=== PATIENT | female | born 1975 | race Caucasian/White ===

== ENCOUNTER 2020-06-04 08:40 | Day surgery (SDC) | payer OTHER ==
[~2020-06-04 08:40] MED LIST: Lactated Ringers 1,000 ML IV SCH; Lidocaine 1%/Sod Bicarbonate in NS 8.4% 1 ML Syringe IDERM PRN; Sodium Chloride 0.9% 10 ML Syringe FLUSH PRN
--- NOTE | 2020-06-04 08:53 | PCM.PREANE ---
Preanesthetic Assessment - Anesthesia/Transfusion/Family Hx Anesthesia History: Prior Anesthesia Reaction Type of Anesthesia Reaction: Excessive Nausea/Vomiting Family History of Anesthesia Reaction: No Transfusion History: No Prior Transfusion(s) - Review of Systems General: No Symptoms Pulmonary: No Symptoms Cardiovascular: No Symptoms Gastrointestinal: No Symptoms Neurological: No Symptoms Other: Reports: None - Physical Assessment ASA Class: 2 Mental Status: Alert & Oriented x3 Airway Class: Mallampati = 1 Dentition: Reports: Normal Dentition Thyro-Mental Finger Breadths: 3 Mouth Opening Finger Breadths: 3 ROM/Head Extension: Full Lungs: Clear to Auscultation, Normal Respiratory Effort Cardiovascular: Regular Rate, Regular Rhythm - Allergies Allergies/Adverse Reactions: Allergies Allergy/AdvReac Type Severity Reaction Status Date / Time Penicillins Allergy Hives Verified 06/03/20 13:33 - Acknowledgements Anesthesia Type Planned: MAC Pt an Appropriate Candidate for the Planned Anesthesia: Yes Alternatives and Risks of Anesthesia Discussed w Pt/Guardian: Yes Pt/Guardian Understands and Agrees with Anesthesia Plan: Yes PreAnesthesia Questionnaire HEENT History: Reports: Allergic Rhinitis Cardiovascular History: Reports: None Respiratory History: Reports: None Gastrointestinal History: Reports: Irritable Bowel Syndrome 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 Genitourinary History: Reports: Other (See Below) Other Genitourinary History: elevated creatinine 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 Musculoskeletal History: Reports: None Neurological History: Reports: None Psychiatric History: Reports: None Endocrine/Metabolic History: Reports: None Hematologic History: Reports: None Immunologic History: Reports: None Oncologic (Cancer) History: Reports: None Dermatologic History: Reports: None - Infectious Disease History Infectious Disease History: Reports: None - Past Surgical History Head Surgeries/Procedures: Reports: None HEENT Surgical History: Reports: Adenoidectomy, Eye Surgery, LASIK Cardiovascular Surgical History: Reports: None Respiratory Surgical History: Reports: None GI Surgical History: Reports: Colonoscopy Female Surgical History: Reports: Breast Reduction Endocrine Surgical History: Reports: None Neurological Surgical History: Reports: None Musculoskeletal Surgical History: Reports: None Oncologic Surgical History: Reports: None Dermatological Surgical History: Reports: None - SUBSTANCE USE Tobacco Use Status *Q: Former Tobacco User Recreational Drug Use History: No - HOME MEDS Home Medications: Home Meds Albuterol Sulfate [Proair Hfa] 1 - 2 puff INH Q4H PRN 06/03/20 [History] Loratadine [Claritin] 10 mg PO DAILY 06/03/20 [History] - CURRENT (IN HOUSE) MEDS Current Meds: Current Medications Lactated Ringer's (Ringers, Lactated) 1,000 mls @ 125 mls/hr IV ASDIRECTED MERVAT Stop: 06/04/20 23:00 Lidocaine/Sodium Bicarbonate (Buffered Lidocaine 1% In Ns 8.4%) 0.25 ml IDERM O NETIME PRN PRN Reason: Prior to IV Start Stop: 06/04/20 18:00 Sodium Chloride (Saline Flush) 10 ml FLUSH ASDIRECTED PRN PRN Reason: Keep Vein Open Stop: 06/04/20 18:00
[2020-06-04] MEDS ORDERED: Propofol 200 MG/20 ML SDV ONE ×4 (09:03→10:18)
[2020-06-04] MEDS ORDERED: fentaNYL 100 MCG/2 ML SDV ONE (09:03)
[2020-06-04] MEDS ORDERED: Lidocaine 1% 4 ML ONE (09:04)
--- NOTE | 2020-06-04 10:34 | PCM.PRNOTE ---
- Free Text/Narrative Note: Date: 06/04/2020 Procedure: screening upper and lower endoscopy History: Russell syndrome, + PMS-2 mutation Endoscopist: Garland Baca MD Findings: a few small gastric polyps, with small hiatal hernia. Colon prep was fair, with no polyps identified. A few scattered diverticula noted. Detailed Report: The patient was taken to the endoscopy suite and placed in left lateral decubitus position. Timeout was performed, and monitored anesthesia care was initiated. A bite-block was placed. The endoscope was inserted into the mouth and advanced to the second portion of the duodenum. Duodenal mucosa appeared normal, there were no lesions appreciated in the duodenum. The scope was then withdrawn into the distal portion of the stomach. The pylorus and gastric antrum appeared normal. At the mid body of the stomach and near the gastroesophageal junction, a few scattered small benign-appearing polyps were identified. A few of these were biopsied with cold forceps. 1 was removed with a cold snare. There was a small hiatal hernia appreciated without any evidence of active inflammation. The scope was withdrawn into the distal esophagus. The Z-line appeared normal. No lesions were appreciated in the esophagus otherwise. Air was suctioned from the stomach prior to withdrawal of the scope. Next attention was turned to colonoscopy. The anus appeared normal. Rectal exam was unremarkable. The colonoscope was inserted and advanced all the way to the cecum. The appendiceal orifice and ileocecal valve were visualized. Prep was fair to good. The scope was slowly withdrawn and mucosal surfaces were carefully inspected. No polyps were identified. There were a few small scattered diverticula along the length of the colon. No pathology noted on retroflexion of the scope within the rectum. Air was suctioned from the rectum prior to withdrawal of the scope. The patient tolerated the procedure well.
--- NOTE | 2020-06-04 10:40 | PCM48HPAN ---
Post Anesthesia Note - EVALUATION WITHIN 48HRS OF ANESTHETIC Vital Signs in Normal Range: Yes Patient Participated in Evaluation: Yes Respiratory Function Stable: Yes Airway Patent: Yes Cardiovascular Function Stable: Yes Hydration Status Stable: Yes Pain Control Satisfactory: Yes Nausea and Vomiting Control Satisfactory: Yes Mental Status Recovered: Yes Vital Signs: Last Vital Signs Temp 37.2 C 06/04/20 08:35 Pulse 107 H 06/04/20 08:35 Resp 16 06/04/20 08:35 BP 139/98 H 06/04/20 08:35 Pulse Ox 97 06/04/20 08:35
== END 2020-06-04 11:20 | disposition home or self-care (01) ==
LOC: JD.SDS 08:40
PROVIDERS: ATTEND Surgery
DX: Z12.11 Encounter for screening for malignant neoplasm of colon (principal); Z15.09 Genetic susceptibility to other malignant neoplasm; K57.30 Diverticulosis of large intestine without perforation or abscess without bleeding; K44.9 Diaphragmatic hernia without obstruction or gangrene; K31.7 Polyp of stomach and duodenum; Z88.0 Allergy status to penicillin; Z79.899 Other long term (current) drug therapy; Z98.890 Other specified postprocedural states; Z87.891 Personal history of nicotine dependence
CPT/HCPCS: 00813; J2001; J2704; J3010; J7120

== ENCOUNTER 2020-07-09 08:02 | Day surgery (SDC) | payer OTHER ==
[2020-07-09] MEDS ORDERED: Sodium Chloride 0.9% 50 ML SDV ONE (08:13)
[2020-07-09] MEDS ORDERED: Lidocaine 1% with EPINEPHrine 1:100,000 10 ML MDV ONE (08:13)
[2020-07-09] MEDS ORDERED: Bupivacaine 0.5% 30 ML SDV ONE ×2 (08:13→09:42)
[2020-07-09] MEDS ORDERED: Scopolamine 1.5 MG Transdermal Patch TRDERM PRN (08:34)
--- NOTE | 2020-07-09 08:54 | PCM.PREANE ---
Preanesthetic Assessment - Procedure Proposed Procedure: laparoscopic assisted vaginal hysterectomy with BSO - Anesthesia/Transfusion/Family Hx Anesthesia History: Prior Anesthesia Reaction (nausea) Family History of Anesthesia Reaction: No Transfusion History: No Prior Transfusion(s) - Review of Systems General: No Symptoms Pulmonary: No Symptoms Cardiovascular: No Symptoms Gastrointestinal: No Symptoms Neurological: No Symptoms Other: Reports: None - Physical Assessment NPO Status Date: 07/08/20 NPO Status Time: 00:00 Vital Signs: Last Vital Signs Temp 36.9 C 07/09/20 08:10 Pulse 81 07/09/20 08:10 Resp 16 07/09/20 08:10 BP 133/96 H 07/09/20 08:10 Pulse Ox 97 07/09/20 08:10 Height: 1.65 m Weight: 94.347 kg ASA Class: 2 Mental Status: Alert & Oriented x3 Airway Class: Mallampati = 1 Dentition: Reports: Normal Dentition Thyro-Mental Finger Breadths: 3 Mouth Opening Finger Breadths: 2 ROM/Head Extension: Full Lungs: Clear to Auscultation, Normal Respiratory Effort Cardiovascular: Regular Rate, Regular Rhythm - Lab Values: Laboratory Last Values Urine HCG, Qual Negative (NEGATIVE) 07/09/20 08:02 - Allergies Allergies/Adverse Reactions: Allergies Allergy/AdvReac Type Severity Reaction Status Date / Time Penicillins Allergy Hives Verified 07/09/20 08:44 - Anesthesia Plan Pre-Op Medication Ordered: None - Acknowledgements Anesthesia Type Planned: General Anesthesia Pt an Appropriate Candidate for the Planned Anesthesia: Yes Alternatives and Risks of Anesthesia Discussed w Pt/Guardian: Yes Pt/Guardian Understands and Agrees with Anesthesia Plan: Yes PreAnesthesia Questionnaire HEENT History: Reports: Allergic Rhinitis Cardiovascular History: Reports: None Respiratory History: Reports: None Gastrointestinal History: Reports: Irritable Bowel Syndrome 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 Genitourinary History: Reports: Other (See Below) Other Genitourinary History: elevated creatinine, hematuria 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 , Other (See Below) Other OB/BYN History: hot flashes, irregular menses, menorrhagia, elective Musculoskeletal History: Reports: None Neurological History: Reports: None Psychiatric History: Reports: None Endocrine/Metabolic History: Reports: None Hematologic History: Reports: None Immunologic History: Reports: None Oncologic (Cancer) History: Reports: None Dermatologic History: Reports: None - Infectious Disease History Infectious Disease History: Reports: None - Past Surgical History Head Surgeries/Procedures: Reports: None HEENT Surgical History: Reports: Adenoidectomy, Eye Surgery, LASIK Cardiovascular Surgical History: Reports: None Respiratory Surgical History: Reports: None GI Surgical History: Reports: Colonoscopy Female Surgical History: Reports: Breast Reduction Endocrine Surgical History: Reports: None Neurological Surgical History: Reports: None Musculoskeletal Surgical History: Reports: None Oncologic Surgical History: Reports: None Dermatological Surgical History: Reports: None - SUBSTANCE USE Tobacco Use Status *Q: Former Tobacco User Tobacco Use Within Last Twelve Months: No Second Hand Smoke Exposure: No Days Per Week of Alcohol Use: 1 Number of Drinks Per Day: 0 Total Drinks Per Week: 0 Recreational Drug Use History: No - HOME MEDS Home Medications: Home Meds Albuterol Sulfate [Proair Hfa] 1 - 2 puff INH Q4H PRN 06/03/20 [History] Loratadine [Claritin] 10 mg PO DAILY 06/03/20 [History] - CURRENT (IN HOUSE) MEDS Current Meds: Current Medications Lactated Ringer's (Ringers, Lactated) 1,000 mls @ 125 mls/hr IV ASDIRECTED MERVAT Stop: 07/09/20 23:00 Last Admin: 07/09/20 08:20 Dose: 125 mls/hr Documented by: Lidocaine/Sodium Bicarbonate (Buffered Lidocaine 1% In Ns 8.4%) 0.25 ml IDERM ONETIME PRN PRN Reason: Prior to IV Start Stop: 07/09/20 18:00 Last Admin: 07/09/20 08:20 Dose: 0.25 ml Documented by: Scopolamine (Transderm-Scop) 1.5 mg TRDERM Q72H PRN PRN Reason: Nausea Last Admin: 07/09/20 08:46 Dose: 1.5 mg Documented by: Sodium Chloride (Saline Flush) 10 ml FLUSH ASDIRECTED PRN PRN Reason: Keep Vein Open Stop: 07/09/20 18:00 Discontinued Medications Bupivacaine HCl (Marcaine 0.5%) Confirm Administered Dose 30 ml .ROUTE .STK-MED ONE Stop: 07/09/20 08:14 Lidocaine/Epinephrine (Xylocaine 1% With Epinephrine 1:100,000) Confirm Administered Dose 10 ml .ROUTE .STK-MED ONE Stop: 07/09/20 08:14 Sodium Chloride (Normal Saline) Confirm Administered Dose 50 ml .ROUTE .[facility]-MED ONE Stop: 07/09/20 08:14
[2020-07-09] MEDS ORDERED: Propofol 200 MG/20 ML SDV ONE ×8 (09:01→10:39)
[2020-07-09] MEDS ORDERED: Rocuronium 50 MG/5 ML Vial ONE (09:01)
[2020-07-09] MEDS ORDERED: Midazolam 1 MG/ML 2 ML SDV ONE (09:01)
[2020-07-09] MEDS ORDERED: Ondansetron 4 MG/2 ML SDV ONE (09:01)
[2020-07-09] MEDS ORDERED: fentaNYL 250 MCG/5 ML SDV ONE ×2 (09:01→10:00)
[2020-07-09] MEDS ORDERED: Lidocaine 1% 4 ML ONE (09:02)
[2020-07-09] MEDS ORDERED: Ketorolac 30 MG/ML SDV ONE (09:02)
[2020-07-09] MEDS ORDERED: Dexamethasone 4 MG/ML 5 ML MDV ONE (09:02)
[2020-07-09] MEDS ORDERED: ceFAZolin 1 GM Vial ONE (09:12)
[2020-07-09] MEDS ORDERED: HYDROmorphone 0.5 MG/0.5 ML Syringe ONE ×2 (09:37)
[2020-07-09] MEDS ORDERED: Lactated Ringers 1,000 ML ONE (09:52)
[2020-07-09] MEDS ORDERED: Ondansetron 4 MG/2 ML SDV IVPUSH PRN (10:57)
[2020-07-09] MEDS ORDERED: Acetaminophen/HYDROcodone 325-5 MG Tab PO PRN (10:57)
[2020-07-09] MEDS ORDERED: Ibuprofen 600 MG Tab PO PRN (10:57)
--- NOTE | 2020-07-09 11:06 | PCM.OPNOTE ---
- General Post-Op/Procedure Note Date of Surgery/Procedure: 07/09/20 Operative Procedure(s): Laparoscopically assisted total vaginal hysterectomy with bilateral salpingo-oophorectomy, cystoscopy Findings: Uterus tubes ovaries appeared to be normal in appearance. Appendix is flaccid and noninflamed. Gallbladder was distended but appeared noninflamed. No other pathology was noted. On evaluation of the bladder there is slight increase in vascularity but no lesions were noted. Normal ureteral jetting of urine was noted bilaterally. Pre Op Diagnosis: 1. High risk for ovarian cancer. 2. Microscopic hematuria Post-Op Diagnosis: Same Anesthesia Technique: General ET Tube Other Anesthesia Type: Lidocaine quarter percent with [id number] cc local Primary Surgeon: Josh Pham Secondary Surgeon: Elmer Belle Anesthesia Provider: Loki Francois Reason Accounting Professor Was Necessary: Retraction, assistance, patient safety, quality of care. Pathology: Uterus with cervix, bilateral fallopian tubes and ovaries as one specimen. Fluid Replacement, Intraop: 1,900 Output, Urine Amount: 60 EBL in mLs: 70 Drain/Tube Comments:: Indwelling bladder catheter during surgery only. Complications: None Condition: Good Free Text/Narrative:: Surgery duration: 60 minutes The patient was taken to the operating room placed in supine position on the operating table. She received 2 g of Ancef preoperatively for infection prophylaxis. She had signed consent previously. After adequate anesthesia pat ient was placed in a dorsal lithotomy position. It should be noted she had sequential compression stockings in place for DVT prophylaxis. A uterine manipulator was placed as was an latex free indwelling bladder catheter. This was done after adequate prepping and draping. The patient was placed in supine position and 3 laparoscopic port sites were developed. Marcaine 0.5% approximately 3-5 mL was injected at each site. Verres needle was placed and pneumoperitoneum was achieved with 3 L of CO2. Infraumbilical and 2 lateral port sites were developed. Under laparoscopic guidance the upper portion of the hysterectomy was performed. The right infundibulopelvic ligament was elevated and crossclamped using the T-PRO Solutionseal computerized cautery device. The round ligament was taken down to the broad ligament. At this time attention was turned to the left side and the left infundibulopelvic ligament and the triple ligament were then taken down in a similar fashion. Broad ligament was taken down to the area of the uterine vasculature. Uterine vasculature was developed in the usual fashion using the cautery system. Both uterine arteries were identified and developed. Vaginal approach was then undertaken. The patient was placed in the dorsal lithotomy position and a weighted speculum was placed in the vagina. The cervix was injected with lidocaine quarter percent with epinephrine 20 mL total. A full circumference incision was made through the epithelium around the cervix. Posterior cul-de-sac was entered without problems. The left uterosacral ligament and then the right uterosacral were taken down using the Enseal vessel closure system. The cardinal ligament and what remained of the uterine vascular vessels and cervical branches of the vessels were managed with the Enseal vessel closure system on each side. Anterior cul-de-sac was then entered and the remaining portion of broad ligament on the right side and a small portion of broad ligament remaining on the left side were then developed in the usual fashion. Uterus was then removed. At this point the uterus tubes and ovaries attached was completely removed and sent as specimen. The vaginal cuff was then run with a locked running suture of 0 Monocryl from the 2 o'clock position to the 10 o'clock position. The vagina was closed with a running locked suture of 0 Monocryl. Hemostasis was confirmed this time and no bleeding was noted. Laparoscopy was then performed to ensure hemostasis. Pneumoperitoneum was reestablished and the laparoscope was placed. The pelvis was found to be hemostatically intact. There was no evidence of any bowel adhesion to the vaginal cuff area noted. The sleeves were removed under direct visualization and the upper sleeve was removed after reversal of the pneumoperitoneum. Each of these sites were closed with a single interrupted suture of 3-0 Monocryl. They were further approximated with Dermabond skin glue. At this point the patient was awakened from general endotracheal anesthesia. Patient is then positioned in a lithotomy position and cystoscopy was performed. This in evaluation of her history of microscopic hematuria. The bladder had been previously emptied with a catheter in place. Catheter was removed and the 30 degree cystoscope was then placed and the bladder was distended to approximately 200 cc. With adequate distention the epithelium was noted. No abnormalities are noted however there was possibly a slight increase in vascularity noted. No lesions apparent that were felt to be in need of biopsy. Bilateral ureteral orifices were visualized and urine jets were confirmed. At the end of cystoscopy the bladder was drained. Patient was returned to supine position and was awakened from general endotracheal anesthesia. She tolerated the procedure well and left the operating room in good condition.
[2020-07-09] MEDS ORDERED: fentaNYL 100 MCG/2 ML SDV IVPUSH PRN (11:20)
--- NOTE | 2020-07-09 11:22 | PCM.POSTAN ---
POST ANESTHESIA ASSESSMENT - MENTAL STATUS Mental Status: Alert, Oriented - VITAL SIGNS Vital Signs: Last Vital Signs Temp 36.9 C 07/09/20 08:10 Pulse 81 07/09/20 08:10 Resp 11 L 07/09/20 11:10 BP 120/65 07/09/20 11:10 Pulse Ox 93 L 07/09/20 11:10 - RESPIRATORY Respiratory Status: Respiratory Rate WNL, Airway Patent, O2 Saturation Stable, Supplemental Oxygen - CARDIOVASCULAR CV Status: Pulse Rate WNL, Blood Pressure Stable - GASTROINTESTINAL GI Status: No Symptoms - PAIN Pain Score: 0 - POST OP HYDRATION Hydration Status: Adequate & Stable - OBSERVATIONS Free Text/Narrative:: no anesthesia complications noted
[2020-07-09] MEDS ORDERED: Acetaminophen/oxyCODONE 325-5 MG Tab PO PRN (12:15)
--- NOTE | 2020-07-09 12:43 | PCM48HPAN ---
Post Anesthesia Note - EVALUATION WITHIN 48HRS OF ANESTHETIC Vital Signs in Normal Range: Yes Patient Participated in Evaluation: Yes Respiratory Function Stable: Yes Airway Patent: Yes Cardiovascular Function Stable: Yes Hydration Status Stable: Yes Pain Control Satisfactory: Yes Nausea and Vomiting Control Satisfactory: Yes Mental Status Recovered: Yes Vital Signs: Last Vital Signs Temp 36.9 C 07/09/20 08:10 Pulse 81 07/09/20 08:10 Resp 12 07/09/20 12:00 BP 105/67 07/09/20 12:00 Pulse Ox 85 L 07/09/20 12:21 - COMMENTS/OBSERVATIONS Free Text/Narrative:: no anesthesia complications noted
== END 2020-07-09 13:35 | disposition home or self-care (01) ==
LOC: JD.SDS 08:02
PROVIDERS: ATTEND Obstetrics & Gynecology
DX: N83.8 Other noninflammatory disorders of ovary, fallopian tube and broad ligament (principal); R31.29 Other microscopic hematuria; Z86.16 Personal history of COVID-19; Z88.0 Allergy status to penicillin; Z79.899 Other long term (current) drug therapy; Z98.890 Other specified postprocedural states; Z87.891 Personal history of nicotine dependence
CPT/HCPCS: 00944; 36415; 80048; 81025; 86850; 86900; 86901; A9270-GY; J0690; J1100; J1170; J1885; J2250; J2405; J2704; J3010; J3490; J7120

== ENCOUNTER 2021-06-10 10:55 | Day surgery (SDC) | payer OTHER ==
[~2021-06-10 10:55] MED LIST changes: +Lidocaine 1% 4 ML ONE; +Propofol 200 MG/20 ML SDV ONE; -Sodium Chloride 0.9% 10 ML Syringe FLUSH PRN; +Sodium Chloride 0.9% 10 ML Syringe FLUSH SCH
[2021-06-10] MEDS ORDERED: Lactated Ringers 1,000 ML ONE (13:14)
[2021-06-10] MEDS ORDERED: Propofol 200 MG/20 ML SDV ONE (13:14)
[2021-06-10] MEDS ORDERED: fentaNYL 100 MCG/2 ML SDV ONE (13:20)
== END 2021-06-10 14:08 | disposition home or self-care (01) ==
LOC: JD.SDS 10:55
PROVIDERS: ATTEND Surgery
DX: Z12.11 Encounter for screening for malignant neoplasm of colon (principal); Z15.09 Genetic susceptibility to other malignant neoplasm; K21.9 Gastro-esophageal reflux disease without esophagitis; Z88.0 Allergy status to penicillin; Z79.899 Other long term (current) drug therapy; Z90.49 Acquired absence of other specified parts of digestive tract; Z98.890 Other specified postprocedural states; Z87.891 Personal history of nicotine dependence
CPT/HCPCS: 45378; J2704; J3010; J7120; 00812

== ENCOUNTER 2023-09-29 08:40 | Day surgery (SDC) | payer BC ==
[~2023-09-29 08:40] MED LIST changes: -Lactated Ringers 1,000 ML IV SCH; -Lidocaine 1% 4 ML ONE; -Lidocaine 1%/Sod Bicarbonate in NS 8.4% 1 ML Syringe IDERM PRN; -Propofol 200 MG/20 ML SDV ONE; +Sodium Chloride 0.9% 10 ML Syringe FLUSH PRN
[2023-09-29] MEDS: Lactated Ringers 1,000 ML IV SCH (09:15)
[2023-09-29] MEDS ORDERED: Propofol 200 MG/20 ML SDV ONE ×2 (10:59→11:06)
[2023-09-29] MEDS ORDERED: ceFAZolin 2 GM Vial ONE (11:06)
[2023-09-29] MEDS ORDERED: fentaNYL 100 MCG/2 ML SDV ONE (11:07)
[2023-09-29] MEDS ORDERED: Lidocaine 1% 5 ML VIAL ONE (11:08)
[2023-09-29] MEDS ORDERED: Midazolam 1 MG/ML 2 ML SDV ONE ×2 (11:08→11:52)
[2023-09-29] MEDS ORDERED: Rocuronium 50 MG/5 ML Vial ONE (11:10)
[2023-09-29] MEDS ORDERED: Dexamethasone 4 MG/ML 5 ML MDV ONE (11:10)
[2023-09-29] MEDS ORDERED: dexmedeTOMIDine HCl 200 MCG/2 ML SDV ONE (11:12)
[2023-09-29] MEDS ORDERED: Ropivacaine 0.5% 5 MG/ML 30 ML SDV ONE (11:14)
[2023-09-29] MEDS: Scopalamine 1mg/3day Transdermal Patch TOP ONE (11:38)
[2023-09-29] MEDS ORDERED: Ondansetron 4 MG/2 ML SDV ONE (12:21)
[2023-09-29] MEDS: EPINEPHrine 1 MG/ML SDV ONE (12:39)
[2023-09-29] MEDS ORDERED: HYDROmorphone 0.5 MG/0.5 ML Syringe IVPUSH PRN (12:42)
[2023-09-29] MEDS ORDERED: fentaNYL 100 MCG/2 ML SDV IVPUSH PRN (12:42)
[2023-09-29] MEDS ORDERED: Ondansetron 4 MG/2 ML SDV IVPUSH PRN (12:42)
[2023-09-29] MEDS ORDERED: Esmolol 100 MG/10 ML SDV ONE (12:42)
[2023-09-29] MEDS ORDERED: Ketorolac 30 MG/ML SDV ONE (12:48)
[2023-09-29] MEDS ORDERED: Lactated Ringers 1,000 ML IV ONE (13:00)
[2023-09-29] MEDS ORDERED: Sugammadex Sodium 200 MG/2 ML VIAL IV ONE (13:00)
[2023-09-29] MEDS ORDERED: Acetaminophen/HYDROcodone 325-5 MG Tab PO PRN (13:39)
== END 2023-09-29 15:40 | disposition home or self-care (01) ==
LOC: JD.SDS 08:40
PROVIDERS: ATTEND Orthopaedic Surgery
DX: S43.431A Superior glenoid labrum lesion of right shoulder, initial encounter (principal); Z86.16 Personal history of COVID-19; Z88.0 Allergy status to penicillin; Z87.891 Personal history of nicotine dependence; Z79.890 Hormone replacement therapy; Z79.899 Other long term (current) drug therapy; X58.XXXA Exposure to other specified factors, initial encounter
CPT/HCPCS: 01630; A9270-GY; C1713; J0171; J0690; J1100; J1596; J1885; J2250; J2405; J2704; J2795; J3010; J3490; J7120

== ENCOUNTER 2024-02-02 00:18 | Day surgery (SDC) | payer BC ==
[2024-02-02] MEDS: Sodium Chloride 0.9% 10 ML Syringe FLUSH PRN (00:46)
[2024-02-02] MEDS: Sodium Chloride 0.9% 1,000 ML IV STA (00:52)
[2024-02-02] MEDS: Ondansetron 4 MG/2 ML SDV IVPUSH ONE (00:53)
[2024-02-02 00:54] LABS: APPEARANCE,URINE CLEAR (Clear); BASOPHILS PERCENT AUTO 0.5 % (0.0-1.0); BILIRUBIN,URINE NEGATIVE (Negative); COLOR,URINE YELLOW (Yellow); EOSINOPHILS ABSOLUTE AUTO 0.1 K/mm3 (0.0-0.4); GLUCOSE,URINE NEGATIVE (Negative); HEMATOCRIT 40.7 % (37.0-47.0); HEMOGLOBIN 13.8 gm/dl (12.0-16.0); IMMATURE GRAN ABSOLUTE AUTO 0.06 K/mm3 (0.00-0.05); IMMATURE GRAN PERCENT AUTO 0.7 % (0.0-0.4); KETONES,URINE NEGATIVE (Negative); LEUKOCYTE ESTERASE,URINE NEGATIVE (Negative); LYMPHOCYTES ABSOLUTE AUTO 1.8 K/mm3 (1.0-4.8); LYMPHOCYTES PERCENT AUTO 20.8 % (24.0-44.0); MEAN CORPUSCULAR HEMOGLOBIN 29.7 pg (28.0-32.0); MEAN CORPUSCULAR HGB CONC 33.9 g/dl (32.0-36.0); MEAN CORPUSCULAR VOLUME 87.7 fl (83.0-99.0); MEAN PLATELET VOLUME 8.9 fl (9.4-12.3); MONOCYTES ABSOLUTE AUTO 0.7 K/mm3 (0.0-0.8); MONOCYTES PERCENT AUTO 8.3 % (0.0-8.0); NEUTROPHILS PERCENT AUTO 68.7 % (41.0-71.0); NITRITE,URINE NEGATIVE (Negative); OCCULT BLOOD,URINE NEGATIVE (Negative); PLATELET COUNT,PLT 243 K/mm3 (150-400); PROTEIN,URINE NEGATIVE (Negative); RED BLOOD CELL COUNT 4.64 M/mm3 (4.10-5.30); UROBILINOGEN,URINE 0.2 (0.2-1.0); WHITE BLOOD CELL COUNT,WBC 8.67 K/mm3 (3.9-11.3)
[2024-02-02] MEDS: HYDROmorphone 0.5 MG/0.5 ML Syringe IVPUSH ONE ×2 (00:54→02:07)
[2024-02-02 01:04] LABS: BACTERIA,URINE FEW /hpf (FEW); EPITHELIAL CELLS,URINE 0-5 /hpf (0-5); MUCUS,URINE RARE /hpf (FEW); RBC,URINE 0-5 /hpf (0-5); WBC,URINE 0-5 /hpf (0-5)
[2024-02-02 01:24] LABS: A/G RATIO 1.1 (1-2); ALBUMIN 3.8 g/dl (3.4-5.0); ANION GAP 14.8 (5-15); BILIRUBIN TOTAL 0.3 mg/dL (0.2-1.0); BUN/CREATININE RATIO 15.5 (14-18); CALCIUM 9.6 mg/dL (8.5-10.1); CREATININE 1.1 mg/dL (0.55-1.02); EST CRCL DRUG DOSING (CG) 55.67 mL/min; POTASSIUM,K 3.8 mEq/L (3.5-5.1); PROTEIN TOTAL,TP 7.2 g/dl (6.4-8.2)
[2024-02-02] MEDS: Metoclopramide 10 MG/2 ML SDV IVPUSH ONE ×2 (02:16→08:31)
[2024-02-02] MEDS: Lactated Ringers 1,000 ML IV SCH (03:28)
[2024-02-02] MEDS: HYDROmorphone 0.5 MG/0.5 ML Syringe IVPUSH PRN (03:30)
[2024-02-02] MEDS ORDERED: fentaNYL 250 MCG/5 ML SDV ONE (09:24)
[2024-02-02] MEDS ORDERED: Lidocaine 1% 5 ML VIAL ONE (09:24)
[2024-02-02] MEDS ORDERED: Ondansetron 4 MG/2 ML SDV ONE (09:24)
[2024-02-02] MEDS ORDERED: Rocuronium 50 MG/5 ML Vial ONE ×2 (09:24→10:53)
[2024-02-02] MEDS ORDERED: Midazolam 1 MG/ML 2 ML SDV ONE (09:24)
[2024-02-02] MEDS ORDERED: Propofol 200 MG/20 ML SDV ONE ×9 (09:24→10:56)
[2024-02-02] MEDS ORDERED: Dexamethasone 4 MG/ML 5 ML MDV ONE (10:08)
[2024-02-02] MEDS ORDERED: Lactated Ringers 1,000 ML ONE (10:09)
[2024-02-02] MEDS ORDERED: dexmedeTOMIDine HCl 200 MCG/2 ML SDV ONE (10:12)
[2024-02-02] MEDS ORDERED: EPINEPHrine 1 MG/ML SDV ONE (10:21)
[2024-02-02] MEDS ORDERED: Bupivacaine 0.5% 30 ML SDV ONE (10:21)
[2024-02-02] MEDS ORDERED: HYDROmorphone 0.5 MG/0.5 ML Syringe ONE ×2 (10:33→11:03)
[2024-02-02] MEDS ORDERED: Sugammadex Sodium 200 MG/2 ML VIAL IV ONE (10:47)
[2024-02-02] MEDS ORDERED: Clindamycin Phosphate in D5W 900 MG in Premix Bag 1 BAG IV ONE (11:11)
[2024-02-02] MEDS ORDERED: Clindamycin Phosphate in D5W 50 ML IV ONE (11:19)
[2024-02-02] MEDS ORDERED: Ketorolac 30 MG/ML SDV ONE (11:23)
[2024-02-02] MEDS ORDERED: fentaNYL 100 MCG/2 ML SDV IVPUSH PRN (11:59)
[2024-02-02] MEDS ORDERED: HYDROmorphone 0.5 MG/0.5 ML Syringe IVPUSH PRN (11:59)
[2024-02-02] MEDS: Lidocaine 1% with EPINEPHrine 1:100,000 20 ML MDV ONE (13:58)
[2024-02-02] MEDS: Acetaminophen/oxyCODONE 325-5 MG Tab PO PRN (14:30)
[2024-02-02] MEDS: Ondansetron 4 MG/2 ML SDV IVPUSH PRN (14:30)
== END 2024-02-02 15:10 | disposition home or self-care (01) ==
LOC: JD.ED 00:18 → JD.SDS 08:45
PROVIDERS: ATTEND Surgery
DX: K80.12 Calculus of gallbladder with acute and chronic cholecystitis without obstruction (principal); Z88.0 Allergy status to penicillin
CPT/HCPCS: 36415; 47562; 76705; 80053; 81001; 83690; 84484; 85025; 93005; 96361; 96374; 96375; 96376; 99285; A9270; J0171; J0665; J0736; J1100; J1170; J1885; J2250; J2405; J2704; J2765; J3010; J3490; J7030; J7120; 00790; 99140